=== PATIENT | female | born 1995 | race Two or more races ===

== ENCOUNTER 2024-11-20 03:05 | Emergency (ER) | payer MEDICAID, OTHER ==
[~2024-11-20] VITALS: Ht 170.2 cm; Wt 112.0 kg
--- NOTE | 2024-11-20 03:17 | ED.PDOC ---
Eye-HPI HPI Comments 29-year-old female presents to the ED chief complaint dental pain. Patient states currently seven weeks . Complaining of dental pain x5 days. Pain 10/10 throbbing in nature. Denies fever, chills, nausea, vomiting, difficulty breathing, or difficulty swallowing. Chief Complaint: Tooth Pain Time Seen by MD: 03:15 Reviewed Notes: Nurses Notes, Medications, Allergies Allergies: Coded Allergies: NO KNOWN ALLERGIES (Unverified , 11/20/24) Home Meds Active Scripts Amoxicillin Trihydrate (Amoxicillin) 500 Mg Cap, 1 CAP PO BID for 7 Days, #14 CAP Prov:KENNEDI COVINGTON SOCIAL SERVICES COORDINATOR 11/20/24 Information Source: Patient All Other Systems: Reviewed and Negative (see hpi) Physical Exam General Appearance: No Apparent Distress, Normal HEENT: Pharynx Normal, Other (right upper molar dental carries ) Neck: Full Range of Motion, Non-Tender Respiratory: Lungs Clear, No Respiratory Distress, Normal Breath Sounds Cardiovascular: No Murmur, Normal Peripheral Pulses, Regular Rate/Rhythm Breast Exam: Deferred Gastrointestinal: Non Tender, Soft Genitalia: Deferred Pelvic: Deferred Rectal: Deferred Extremities: Normal capillary refill, Normal range of motion Musculoskeletal : Apperance: Normal Neurologic: Alert, No Motor Deficits, Normal Affect, Normal Mood, No Sensory D eficits Cerebellar Function: Normal Reflexes: NOT DONE Skin: Dry, Normal Color, Warm Lymphatic: No Adenopathy Was a procedure done? Was a procedure done?: No EENT DIFF Eye: N/A Ear: Otitis Media, Dental, Pharyngitis X-Ray, Labs, Meds, VS Vital Signs Date Time Temp Pulse Resp B/P (MAP) Pulse Ox O2 Delivery O2 Flow Rate FiO2 11/20/24 03:08 99.4 97 20 123/84 95 99.4 X-Ray, Labs, Meds, VS Comment Rocephin 1 g IM Hurricaine spray and Tylenol 1 g reports improvement in pain requesting discharge at this time. Script trial of amoxicillin advised take medications as prescribed side effects discussed. Advised to follow up call and make a dental appointment for resolution. Advised to follow up with PCP and OBGYN. ER return precautions given patient indicates understanding agrees with discharge plan of care. Time of 1ST Reevaluation: 03:15 Reevaluation 1ST: Unchanged Time of 2ND Reevaluation: 03:35 Reevaluation 2ND: Improved Patient Education/Counseling: Diagnosis, Treatment, Need For Follow Up Family Education/Counseling: Diagnosis, Treatment SEPSIS Sepsis Screen Vital Signs Date Time Temp Pulse Resp B/P (MAP) Pulse Ox O2 Delivery O2 Flow Rate FiO2 11/20/24 03:08 99.4 97 20 123/84 95 99.4 Departure 1 Departure Time of Disposition: 03:33 Impression: Primary Impression: Dental infection Disposition: 01 HOME / SELF CARE / HOMELESS Condition: Stable e-Prescriptions Amoxicillin Trihydrate (Amoxicillin) 500 Mg Cap 1 CAP PO BID for 7 Days, #14 CAP Prov: KENNEDI COVINGTON 11/20/24 Discharged With: Significant Other Critical Care Note Critical Care Time?: No Stability Stability form required: KENNEDI Sage Nov 20, 2024 03:17
[2024-11-20] MEDS: ACETAMINOPHEN 500 MG TAB or CAP PO ONE (03:23)
[2024-11-20] MEDS ORDERED: AMOX500C2 PO (03:34)
[2024-11-20] MEDS: cefTRIAXone SOD 1,000 MG VL IM ONE (03:37)
[2024-11-20] MEDS: BENZOCAINE (DENTAL) 20 % SPRAY 60ML MT ONE (03:37)
[2024-11-20 03:39] VITALS: BP 123/84; PULSE 97; RESP 20; TEMP 99.4; O2SAT 96
== END 2024-11-20 04:31 | disposition home or self-care (01) ==
LOC: ER 03:05
DX: O98.811 Other maternal infectious and parasitic diseases complicating pregnancy, first trimester (principal); K04.7 Periapical abscess without sinus; Z79.899 Other long term (current) drug therapy; Z3A.01 Less than 8 weeks gestation of pregnancy
CPT/HCPCS: 96372; 99283; J0696

== ENCOUNTER 2025-02-23 21:44 | Emergency (ER) | payer MEDICAID, OTHER ==
[~2025-02-23] VITALS: Ht 162.6 cm; Wt 77.2 kg
--- NOTE | 2025-02-23 22:12 | ED.PDOC ---
Musculoskeletal HPI Comments 30y F who presents to the ED via EMS for chief complaint of R shoulder pain. EMS states pt was at [employer] playing a musical chair game and states an object was thrown at the pt and pt caught the object and fell on the R shoulder to help break her fall. Pt states since, she did not lose consciousness but has not been able to move her R shoulder and noted increased pain when attempting to move her R shoulder and EMS was called. EMS arrived on scene and notes pt was in severe pain and IV was established and pt was given 50 mcg of fentanyl and 4 mg zofran. EMS notes pt started to have low blood pressure and pt was given 23.1 mg of ketamine with pain lessened to a 7/10 afterwards and pt was brought to the ED. Pt in the ED, noted to have sling on R arm and is able to move her distal extremities. 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 NURSING EXECUTIVE Hx Family History Family History: Reviewed,noncontributory to illness Social History Smoker: Non-Smoker Alcohol: Denies ETOH Use Drugs: Denies Drug Use Lives In: Home Constitutional: denies: chills, diaphoresis, fatigue, fever, malaise, sweats, weakness, others EENTM: denies: blurred vision, double vision, ear bleeding, ear discharge, ear drainage, ear pain, ear ringing, eye pain, eye redness, hearing loss, mouth pain, mouth swelling, nasal discharge, nose bleeding, nose congestion, nose pain, photophobia, tearing, throat pain, throat swelling, voice changes, others Respiratory: denies: cough, hemoptysis, orthopnea, SOB at rest, shortness of breath, SOB with excertion, stridor, wheezing, others Cardiovascular: denies: chest pain, dizzy spells, diaphoresis, Dyspnea on exertion, edema, irregular heart beat, left arm pain, lightheadedness, palpitations, PND, syncope, others Gastrointestinal: denies: abdomen distended, abdominal pain, blood streaked bowels, constipated, diarrhea, dysphagia, difficulty swallowing, hematemesis, melena, nausea, poor appetite, poor fluid intake, rectal bleeding, rectal pain, vomiting, others Genitourinary: denies: abnormal vagina bleeding, burning, dyspareunia, dysuria, flank pain, frequency, hematuria, incontinence, pain, , vagina discharge, urgency, others Neurological: denies: dizziness, fainting, headache, left sided numbness, left sided weakness, numbness, paresthesia, pre-existing deficit, right sided numbness, right sided weakness, seizure, speech problems, tingling, tremors, weakness, others Musculoskeletal: reports: joint pain, muscle pain; denies: back pain, gout, joint swelling, muscle stiffness, neck pain, others Integumetry: denies: bruises, change in color, change in hair/nails, dryness, laceration, lesions, lumps, rash, wounds, others Allergic/Immunocompromised: denies: Difficulty Healing, Frequent Infections, Hives, Itching, others Hematologic/Lymphatic: denies: anemia, blood clots, easy bleeding, easy bruising, swollen glands, others Endocrine: denies: excessive hunger, excessive sweating, excessive thirst, excessive urination, flushing, intolerance to cold, intolerance to heat, unexplained weight gain, unexplained weight loss, others Psychiatric: denies: anxiety, bipolar disorder, depression, hopeless, panic disorder, schizophrenia, sleepless, suicidal, others All Other Systems: Reviewed and Negative Physical Exam General Appearance: No Apparent Distress, Normal HEENT: Normal ENT Inspection, Pharynx Normal, TMs Normal Neck: Full Range of Motion, Non-Tender, Normal, Normal Inspection Respiratory: Chest Non-Tender, Lungs Clear, No Accessory Muscle Use, No Respiratory Distress, Normal Breath Sounds Cardiovascular: No Edema, No JVD, No Murmur, No Gallop, Normal Peripheral Pulses, Regular Rate/Rhythm Breast Exam: Deferred Gastrointestinal: No Organomegaly, Non Tender, No Pulsatile Mass, Normal Bowel Sounds, Soft Genitalia: Deferred Pelvic: Deferred Rectal: Deferred Extremities: Other (distal CMS intact to the R arm) Musculoskeletal : Apperance: Normal Neurologic: Alert, rent control office manager II-XII nml as Tested, No Motor Deficits, Normal Affect, Normal Mood, No Sensory Deficits Cerebellar Function: Normal Reflexes: Normal Skin: Dry, Normal Color, Warm Lymphatic: No Adenopathy Was a procedure done? Was a procedure done?: Yes Sedation Sedation?: Yes Informed consent obtained: Yes Sedation start time: 13:33 Sedation end time: 23:49 Sedation total time: 16 Sedation provider statement: Procedure explained consent obtained. Patient was given monitored sedation using 80 mg ketamine Good sedative effect. Right shoulder was reduced using traction, good range of motion postreduction Reduction confirmed with x-ray Patient placed in shoulder immobilizer Differential Diagnosis EXT Differential Diagnosis: Fracture, Sprain, Dislocation, Contusion X-Ray, Labs, Meds, VS Vital Signs Date Time Temp Pulse Resp B/P (MAP) Pulse Ox O2 Delivery O2 Flow Rate FiO2 02/23/25 22:21 98.2 80 14 110/75 (87) 96 98.2 02/23/25 22:21 Room Air* 0 21 02/23/25 21:52 98.1 72 20 115/82 100 98.1 Current Medications Medications (Trade) Dose Ordered Sig/Joe Route Start Time Stop Time Status Last Admin Ketamine HCl (Ketalar) 150 mg ONCE ONCE IV 02/23/25 23:15 02/23/25 23:16 DC 02/23/25 23:29 X-Ray, Labs, Meds, VS Comment X-ray shows dislocation of the right shoulder Time of 1ST Reevaluation: 22:40 Reevaluation 1ST: Unchanged Patient Education/Counseling: Diagnosis, Treatment, Need For Follow Up (Follow up with the PCP in next day available appointment. Return emergency room if symptoms worsen.) Family Education/Counseling: No Family Present Departure 1 Departure Time of Disposition: 23:50 Impression: Primary Impression: Shoulder dislocation Qualified Codes: S43.004A - Unspecified dislocation of right shoulder joint, initial encounter Disposition: HOME / SELF CARE / HOMELESS Condition: Stable e-Prescriptions Cyclobenzaprine Hcl (Cyclobenzaprine Hcl) 5 Mg Tab 1 TAB PO TID PRN, #30 TAB Prov: LAKISHA JOSEPH LICENSED STAFF MFT 02/23/25 Ibuprofen Micronized (Ibuprofen) 800 Mg Tab 800 MG PO TID PRN, #40 TAB Prov: LAKISHA JOSEPH LICENSED STAFF MFT 02/23/25 Discharged With: Self Critical Care Note Critical Care Time?: No Stability Stability form required: No Heart Score Heart Score: Heart Score Response (Comments) Value History N/A 0 EKG N/A 0 Age N/A 0 Risk Factors N/A 0 Troponin N/A 0 Total 0 I personally scribed for LAKISHA JOSEPH ([email or web address]) on 02/23/25 at 22:12. Electronically submitted by Javier Oliver ([email or web address]). LAKISHA JOSEPH Feb 23, 2025 22:12
[2025-02-23 22:21] VITALS: TEMP 98.2
--- NOTE | 2025-02-23 23:22 | DVH ---
CLINICAL INDICATION: pain TECHNIQUE: XY R SHOULDER 2+ VIEW XRAY COMPARISON: None FINDINGS/IMPRESSION: : Anterior shoulder dislocation with anterior and inferior subluxation of the humeral head relative to the glenoid process of the scapula. No evidence of fracture. Soft tissues are normal in appearance. Visualized portions of the lungs and mediastinum are unremarkable.
[2025-02-23] MEDS: KETAMINE 50mg/ML 1ml syringe IV ONE (23:29)
[2025-02-23] MEDS ORDERED: IBUP-1455 PO (23:52)
[2025-02-23] MEDS ORDERED: CYCL-837 PO (23:52)
[2025-02-24] MEDS: MORPHINE SULFATE 4 MG/ML SYR/VIAL IV ONE (00:08)
[2025-02-24] MEDS: ONDANSETRON HCL 4 MG/2 ML VIAL IV ONE (00:09)
[2025-02-24 00:40] VITALS: BP 106/68; PULSE 79; RESP 24; O2SAT 96
--- NOTE | 2025-02-24 01:08 | DVH ---
CLINICAL INDICATION: shoulder popped into place TECHNIQUE: XY R SHOULDER 1V XRAY COMPARISON: XY R SHOULDER 2+ VIEW XRAY on DOS: 02/23/25 FINDINGS/IMPRESSION: : There is no evidence of acute fracture or dislocation. Soft tissues are unremarkable.
== END 2025-02-24 00:57 | disposition home or self-care (01) ==
LOC: EDBD 21:44 → EDUNIT# 21:44 → ER 21:44
DX: S43.014A Anterior dislocation of right humerus, initial encounter (principal); W22.8XXA Striking against or struck by other objects, initial encounter; Y93.89 Activity, other specified; Y92.89 Other specified places as the place of occurrence of the external cause; Y99.8 Other external cause status
CPT/HCPCS: 23650; 73020; 73030; 96374; 96375; 99152; 99285; J2270; J2405